=== PATIENT | male | born 1945 | race Caucasian/White ===

== ENCOUNTER 2020-03-28 09:34 | Emergency (ER) | payer SELFPAY ==
--- NOTE | 2020-03-28 10:35 | ER Document Report ---
ED Medical Screen (RME) - General Stated Complaint: POSSIBLE PYSCH NOT EATING/DRINKING NO MEDS Time Seen by Provider: 03/28/20 10:27 Notes: Patient is a 74-year-old male who presents emergency department with a chief complaint of poor appetite. Patient's son is at bedside and states that the patient had a manic episode and drove to [place] about 3 weeks ago. He then went to a hospital and was discharged and stopped in [place]. From there, he was watched in the ED. He then will took a cab and has been here in the area for the past week. Patient states that he still feels paranoid. Denies any suicidal homicidal ideation. Exam: Patient appears slightly anxious I have greeted and performed a rapid initial assessment of this patient. A comprehensive ED assessment and evaluation of the patient, analysis of test results and completion of medical decision making process will be conducted by an additional ED providers. Physical Exam - Vital signs Vitals: Temp Pulse Resp BP Pulse Ox 98.2 F 97 20 137/81 H 100 03/28/20 09:41 03/28/20 09:41 03/28/20 09:41 03/28/20 09:41 03/28/20 09:41 Course - Vital Signs Vital signs: Temp Pulse Resp BP Pulse Ox 98.2 F 97 20 137/81 H 100 03/28/20 09:41 03/28/20 09:41 03/28/20 09:41 03/28/20 09:41 03/28/20 09:41
[2020-03-28 11:22] LABS: ABSOLUTE EOSINOPHILS # (AUTO) 0.1 10^3/uL (0.0-0.6); ABSOLUTE LYMPHOCYTES (AUTO) 1.2 10^3/uL (0.5-4.7); ABSOLUTE MONOCYTES (AUTO) 0.3 10^3/uL (0.1-1.4); ABSOLUTE NEUT (AUTO) 4.2 10^3/uL (1.7-8.2); BASOPHILS % (AUTO) 0.5 % (0-2); HEMATOCRIT 42.6 % (37.9-51.0); HEMOGLOBIN 14.2 g/dL (13.5-17.0); LYMPHOCYTES % (AUTO) 20.9 % (13-45); MEAN CORPUSCULAR HGB CONC 33.5 g/dL (32.0-36.0); MEAN CORPUSCULAR VOLUME 81 fl (80-97); MONOCYTES % (AUTO) 5.9 % (3-13); PLATELET COUNT 220 10^3/uL (150-450); RED BLOOD COUNT 5.28 10^6/uL (4.35-5.55); SEGMENTED NEUTROPHILS % (AUTO) 71.7 % (42-78); TOTAL CELLS COUNTED % (AUTO) 100 %; WHITE BLOOD COUNT 5.8 10^3/uL (4.0-10.5)
[2020-03-28 11:49] LABS: APPEARANCE,URINE SLIGHTLY-CLOUDY; BILIRUBIN,URINE NEGATIVE (NEGATIVE); COLOR,URINE YELLOW; GLUCOSE, URINE NEGATIVE (NEGATIVE); KETONES,URINE TRACE mg/dL (NEGATIVE); LEUKOCYTE ESTERASE,URINE SMALL (NEGATIVE); NITRITE,URINE NEGATIVE (NEGATIVE); PROTEIN,URINE NEGATIVE (NEGATIVE); URINE SPECIFIC GRAVITY 1.025
[2020-03-28 11:51] LABS: ALBUMIN 4.3 g/dL (3.5-5.0); ALKALINE PHOSPHATASE 53 U/L (38-126); ANION GAP 12 (5-19); ASPARTATE AMINO TRANSFERASE 34 U/L (17-59); BILIRUBIN,TOTAL 0.6 mg/dL (0.2-1.3); BLOOD UREA NITROGEN 27 mg/dL (7-20); CALCIUM 9.7 mg/dL (8.4-10.2); CARBON DIOXIDE 23 mmol/L (22-30); CHLORIDE 105 mmol/L (98-107); GLUCOSE 116 mg/dL (75-110); POTASSIUM 4.4 mmol/L (3.6-5.0); TOTAL PROTEIN 7.4 g/dL (6.3-8.2)
[2020-03-28 11:52] LABS: ACETAMINOPHEN < 10 ug/mL (10-30); ALCOHOL < 10 mg/dL (NONE DETECTED); SALICYLATE < 1.0 mg/dL (2.0-20.0)
[2020-03-28 12:30] LABS: URINE AMPHETAMINES SCREEN NEGATIVE; URINE BARBITURATES SCREEN NEGATIVE; URINE BENZODIAZEPINES SCREEN NEGATIVE; URINE COCAINE SCREEN NEGATIVE; URINE MARIJUANA (THC) SCREEN NEGATIVE; URINE METHADONE SCREEN NEGATIVE
[2020-03-28 12:33] LABS: URINE PHENCYCLIDINE SCREEN NEGATIVE
--- NOTE | 2020-03-28 15:48 | RADIOLOGY REPORT (SQ) ---
EXAM DESCRIPTION: CT HEAD WITHOUT IMAGES COMPLETED DATE/TIME: 03/28/2020 3:39 pm REASON FOR STUDY: AMS COMPARISON: None. TECHNIQUE: Axial images acquired through the brain without intravenous contrast. Images reviewed wi th bone, brain and subdural windows. Additional sagittal and coronal reconstructions were generated. Images stored on PACS. All CT scanners at this facility use dose modulation, iterative reconstruction, and/or weight based d osing when appropriate to reduce radiation dose to as low as reasonably achievable (ALARA). [facility]: Dose Right [facility]: CareDose [facility]: Dose Right [facility]: Teradose 4D [facility]: MCTX Properties RADIATION DOSE: CT Rad equipment meets quality standard of care and radiation dose reduction techniq ues were employed. CTDIvol: 53.2 mGy. DLP: 1017 mGy-cm. mGy. LIMITATIONS: None. FINDINGS: VENTRICLES: Prominent. CEREBRUM: No masses. No hemorrhage. No midline shift. Areas of low density in the white matter mos t likely due to chronic micro-vascular ischemic change. No evidence for acute infarction. CEREBELLUM: No masses. No hemorrhage. No alteration of density. No evidence for acute infarction. EXTRAAXIAL SPACES: Mild age-related involutional change. No fluid collections. No masses. ORBITS AND GLOBE: No intra- or extraconal masses. Normal contour of globe without masses. CALVARIUM: No fracture. PARANASAL SINUSES: No fluid or mucosal thickening. SOFT TISSUES: No mass or hematoma. OTHER: No other significant finding. IMPRESSION: MILD CHRONIC CHANGES OF ATROPHY AND MICROVASCULAR ISCHEMIA. NO ACUTE PROCESS. EVIDENCE OF ACUTE STROKE: NO. TECHNICAL DOCUMENTATION: JOB ID: [id number] Quality ID # 436: Final reports with documentation of one or more dose reduction techniques (e.g., Au tomated exposure control, adjustment of the mA and/or kV according to patient size, use of iterative reconstruction technique) 2010 [employer]- All Rights Reserved Reading location - IP/workstation name: [email or web address]
--- NOTE | 2020-03-28 19:36 | ER Document Report ---
ED Psych Disorder / Suicide - General Chief Complaint: Psych Problem Stated Complaint: POSSIBLE PYSCH NOT EATING/DRINKING NO MEDS Time Seen by Provider: 03/28/20 10:27 [facility] [[facility] - Follow up as needed Notes: Patient is a 74-year-old male who presents emergency department with a chief complaint of poor appetite. Patient's son is at bedside and states that the patient had a manic episode and drove to [place] about 3 weeks ago. He then went to a hospital and was discharged and stopped in [place]. From there, he was watched in the ED. He then will took a cab and has been here in the area for the past week. Patient states that he still feels paranoid. Denies any suicidal homicidal ideation. - Related Data Allergies/Adverse Reactions: No Known Allergies Allergy (Unverified 03/28/20 16:26) Past Medical History - Social History Smoking Status: Unknown if Ever Smoked Family History: Reviewed & Not Pertinent Physical Exam - Vital signs Vitals: Temp Pulse Resp BP Pulse Ox 98.2 F 97 20 137/81 H 100 03/28/20 09:41 03/28/20 09:41 03/28/20 09:41 03/28/20 09:41 03/28/20 09:41 Course - Re-evaluation Re-evalutation: 03/28/20 19:37 Otology is unremarkable. Chemistries show a BUN of 27, creatinine is normal at 1.2. Glucose is 116. Urinalysis shows a small amount of leukocytes in his urine. We will send urine for culture. Salicylates, acetaminophen, and alcohol are negative. A urine drug screen is unremarkable. Thony from [facility] had recommended that the patient be tested for syphilis, as per the [place] recommendations. This was ordered and is pending. CT of the head microvascular ischemia, with mild chronic changes, consistent with patient's age of 74. At this time, the patient is medically clear for mental health evaluation by Dr. Williamson and staff. 03/28/20 19:53 Thony from [facility] has recommended the patient start Depakote, arms p.o. twice daily, BuSpar 5 mg p.o. twice daily, risperidone, 0.25 mg every morning, and risperidone 0.25 mg nightly. - Vital Signs Vital signs: Temp Pulse Resp BP Pulse Ox 98.2 F 97 20 137/81 H 100 03/28/20 09:41 03/28/20 09:41 03/28/20 09:41 03/28/20 09:41 03/28/20 09:41 - Laboratory Result Diagrams: 03/28/20 10:45 03/28/20 10:45 Laboratory results interpreted by me: 03/28/20 03/28/20 03/28/20 10:45 10:45 10:45 RDW 15.0 H BUN 27 H Est GFR (MDRD) Non-Af 59 L Glucose 116 H Urine Ketones TRACE H Urine Urobilinogen 2.0 H Ur Leukocyte Esterase SMALL H Salicylates < 1.0 L Acetaminophen < 10 L - EKG Interpretation by Me Additional EKG results interpreted by me: 03/28/20 20:12 Sinus rhythm. Rate 79. AL 136; QRS 96; QT 356; QTc 409. Numbness ICU elevations or depressions noted. No other EKG for comparison. Discharge - Discharge Clinical Impression: Abnormal behavior Condition: Stable Disposition: PSYCH HOSP/UNIT [facility]: [facility] [Primary [facility]] - Follow up as needed
[2020-03-28] MEDS: BUSPIRONE HCL 10 MG TABLET PO SCH (21:13)
[2020-03-28] MEDS: DIVALPROEX SODIUM 500 MG TAB.SR.24H PO SCH (21:13)
--- NOTE | 2020-03-28 23:01 | EKG REPORT ---
SEVERITY:- OTHERWISE NORMAL ECG - SINUS RHYTHM BORDERLINE LEFT AXIS DEVIATION : Confirmed by: Brandt Lo 28-Mar-2020 23:00:13
[2020-03-29] MEDS: RISPERIDONE 0.25 MG TABLET PO SCH ×2 (02:44→07:38)
[2020-03-29] MEDS: DIVALPROEX SODIUM 500 MG TAB.SR.24H PO SCH ×2 (11:26→19:25)
[2020-03-29] MEDS: BUSPIRONE HCL 10 MG TABLET PO SCH ×2 (11:26→19:26)
[2020-03-30] MEDS: RISPERIDONE 0.25 MG TABLET PO SCH ×3 (09:07→23:54)
[2020-03-30] MEDS: DIVALPROEX SODIUM 500 MG TAB.SR.24H PO SCH ×2 (10:55→18:15)
[2020-03-30] MEDS: BUSPIRONE HCL 10 MG TABLET PO SCH ×2 (10:55→18:15)
--- NOTE | 2020-03-30 12:10 | ER Document Report ---
Doctor's Note Notes: 03/30/20 12:08 4-year-old male brought in for evaluation of mary. He has not yet been seen by the psychiatric team so we do not yet have a definitive plan of care, awaiting their evaluation.
[2020-03-31] MEDS: RISPERIDONE 0.25 MG TABLET PO SCH ×2 (08:57→22:01)
[2020-03-31] MEDS: DIVALPROEX SODIUM 500 MG TAB.SR.24H PO SCH ×2 (09:48→17:59)
[2020-03-31] MEDS: BUSPIRONE HCL 10 MG TABLET PO SCH ×2 (09:48→17:59)
--- NOTE | 2020-03-31 17:09 | ER Document Report ---
Doctor's Note Notes: 03/31/20 17:08 Patient has been ambulatory in the room in no acute distress verbalizing with the nurses. Psychiatric team is evaluated the patient and have verbally told me that they believe patient will likely be discharged into the son's care tomorrow. They are requesting that I place a social work consult for the anne-marie ent which I have done
--- NOTE | 2020-03-31 17:09 | PSYCHOLOGICAL NOTE ---
Psych Note - Psych Note Date seen by psych provider: 03/31/20 Time seen by psych provider: 16:50 Psych Note: Collateral call: Tremaine Alcala, Spoke to patients son, Tremaine Alcala, at 1552. [facility] reports [facility] called [facility] today and wants him to get a POA for his father and told him to talk to the hospital how to go about this. He reports history of manic episodes where his father drove 16 straight hours to [place] and checked into a hospital, followed by driving to [place] and checked into hospital. There he was IVC to inpatient where he stayed for 2 weeks. Tremaine reports he was put in a cab home to [place] (6 hours) and soon stopped taking his psychiatric medications when he was home and unsupervised. Hospital also reported finding a bag of pills that patient not taking while in their care. Tremaine was hoping for patient to be admitted to an inpatient facility to adjust, such as [facility]. He is worried about patients manic episodes and discussed playing golf the week prior and seeing a definite change in behaviors. Tremaine reports patient lives alone, however he is able to check on him daily. States he can stop by at 0730 and 1700 if patient can be scheduled to take medications at that time and he would assist to ensure medication was taken. Tremaine is looking into more [place] resources to try and get more assistance for patient. If patient is discharged, son is available in the morning to pick him up. Tremaine was informed patient was recommended to follow up with neurology upon discharge and that he was started on Buspar 5mg, Depakote ER 500mg, and Risperidone 0.25mg. He was informed medications will assist with mood disorder as well as dementia type symptoms. He was informed patient was stable at this time and not a danger to himself or others and that a referral to [facility] would not be likely as this point. Called patients son at 1653 to update on a tentative plan to discharge in the morning. Updated Tremaine that patient wants to call him to get his input on his eyes bothering him. Medical team is aware and involved of his eye complaint. Tremaine just got off the phone with patient. He reports he spoke and advised him to let the nurses know of his eye care. Tremaine reports asking for his opinion seems like regression as this is not typical or common. Tremaine reports patients mood seems better, he is not paranoid or anxious, and swears he will take his medication. States previously when they talked he was paranoid, felt like he was being recorded, and only wanted to talk in person. Was informed he would be updated in the morning if patient still presented stable. Tremaine is involved in patient's plan of care and will be picking up patient tomorrow (04/01), if discharged.
[2020-03-31] MEDS ORDERED: LORAZEPAM INJ 2 MG/1 ML VIAL IM ONE (20:56)
[2020-03-31] MEDS ORDERED: HALOPERIDOL LACTATE INJ 5 MG/1 ML VIAL IM ONE (20:56)
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
[2020-04-01] MEDS: DIVALPROEX SODIUM 500 MG TAB.SR.24H PO SCH (09:02)
[2020-04-01] MEDS: BUSPIRONE HCL 10 MG TABLET PO SCH (09:02)
[2020-04-01] MEDS: RISPERIDONE 0.25 MG TABLET PO SCH (09:02)
--- NOTE | 2020-04-01 10:28 | ER Document Report ---
Doctor's Note Notes: 04/01/20 09:50 Constitutional: Nontoxic appearance, no acute distress Eyes: Nonicteric, extraocular movements intact, sclera clear Cardiovascular: Heart rate and rhythm regular, no JVD Respiratory: Sounds clear bilaterally, nonlabored breathing, no use of accessory muscles, no tachypnea Gastrointestinal: Abdomen not distended Muculoskeletal: Moves all extremities well, normal gait Skin: Normal color Neuro: Awake alert, normal speech Psych: Normal mood and affect Patient appears medically clear for discharge or transfer pending behavioral health team disposition. 04/01/20 15:24 Packet of information provided by discharge planning to give consent patient's family member to assist with out patient placement and process for guardianship. Behavioral health team has rescinded patient's IVC paperwork and states that he is stable for discharge home with his son. 04/01/20 15:36 Patient son here to pick him up
[2020-04-01 15:42] VITALS: BP 148/80
--- NOTE | 2020-04-04 15:43 | PSYCHOLOGICAL NOTE ---
Psych Note - Psych Note Date seen by psych provider: 03/30/20 Time seen by psych provider: 14:05 Psych Note: Evaluation with patient from [id number]. Presenting Problem: FULL Involuntary Commitment due to saba, paranoia, per son Bipolar history, and concerns for onset of neurodegenerative processes based on Head CT language. Medication already started to address mood while taking into consideration possible neurodegenerative processes. Clinical Presentation: Saba Been off medications and out of treatment Per son history of Bipolar Concerns for neurodegenerative processes Impression/Plan: Recommendation to maintain FULL Involuntary Commitment. Today patient was meticulously making his bed. He took a long time at this task. He often stared off. He asked "can I confide in you?" then went on to say "I am on a lot of medication to keep me in a stupor, I take pills 3 times a day to maintain the stupor." He denied suicidal and homicidal ideation. Patient was kind and polite. Allowing for continued stabilization in terms of the me dication. He continued to display psychomotor agitation as evidenced by up walking around, pacing, standing in doorway. He also presented with continued paranoia and guarded as evidenced by asking if he can confide in this clinician and then saying the medication keeps him in a stupor as if that is where people want him to be. Consulted with Dr. Williamson regarding the management and care of patient. ED Physician in agreement with recommendations.
--- NOTE | 2020-04-04 15:48 | PSYCHOLOGICAL NOTE ---
Psych Note - Psych Note Date seen by psych provider: 03/31/20 Time seen by psych provider: 18:00 Psych Note: Interaction with patient around 1800. Presenting Problem: FULL Involuntary Commitment due to saba, paranoia, per son Bipolar history, and concerns for onset of neurodegenerative processes based on Head CT language. Medication already started to address mood while taking into consideration possible neurodegenerative processes. Clinical Presentation: Saba Been off medications and out of treatment Per son history of Bipolar Concerns for neurodegenerative processes Impression/Plan: Recommendation to maintain FULL Involuntary Commitment. Today observed patient walk to other side of the emergency department for shower. He was calm and cooperative with staff. He wanted to call his son to get son's input about his eye irritation. 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 Coordinated with son for plan of care for discharge tomorrow. Son noted patient resides alone but son is local and would do daily assistance with medications and administration. Son noted [facility] Son agreed that patient seems better after speaking with him on the phone. Informed Attending Medical Provider a social work consult may benefit son in terms of available resources and options. Spoke to Nicole Singer about this social work consult directly. Consulted with Dr. Williamson regarding the management and care of patient. ED Physician in agreement with recommendations.
== END 2020-04-01 15:42 | disposition home or self-care (01) ==
LOC: ER 09:34
DX: F03.91 Unspecified dementia, unspecified severity, with behavioral disturbance (principal); F31.9 Bipolar disorder, unspecified; R63.0 Anorexia; Z78.1 Physical restraint status; Z91.14 Patient's other noncompliance with medication regimen
CPT/HCPCS: 93005; 99285; 96372; 36415; 80307 ×4; 85025; 86592; 80053; 81001; 70450; 93010; J1630; J2060; J3490 ×4